=== PATIENT | male | born 1990 | race Caucasian/White ===

== ENCOUNTER 2018-10-23 23:35 | Emergency (ER) | payer OTHER ==
--- NOTE | 2018-10-23 23:56 | EDM.PDOC ---
ED HPI GENERAL MEDICAL PROBLEM - General Chief Complaint: Lower Extremity Injury/Pain Stated Complaint: LEFT LEG INJURY Time Seen by Provider: 10/23/18 23:39 Source of Information: Reports: Patient History Limitations: Reports: No Limitations - History of Present Illness INITIAL COMMENTS - FREE TEXT/NARRATIVE: Is a 27-year-old male. 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 It initially grazed down his left upper arm and then hit him in the thigh. He now has massive swelling of the thigh with bruising that has drained into his knee and down his calf and into his ankle. He has of course lots of pain with this and is not able to bend that knee due to the swelling. He states he doesn't have any numbness in his toes or tingling. He denies any other acute injuries. - Related Data Allergies Allergy/AdvReac Type Severity Reaction Status Date / Time No Known Allergies Allergy Verified 10/23/18 23:43 Home Meds: Home Meds . [No Known Home Meds] 10/23/18 [History] Review of Systems - Review of Systems Review Of Systems: See Below Constitutional: Denies: Chills, Fever Eyes: Reports: No Symptoms Ears: Reports: No Symptoms, Previous Injury Mouth/Throat: Reports: No Symptoms Respiratory: Reports: No Symptoms Cardiovascular: Reports: No Symptoms GI/Abdominal: Reports: No Symptoms Genitourinary: Reports: No Symptoms Musculoskeletal: Reports: Other (As per history of present illness) Skin: Reports: Other (As per history of present illness) Neurological: Reports: No Symptoms Psychiatric: Reports: No Symptoms ED EXAM, GENERAL - Physical Exam Exam: See Below Exam Limited By: No Limitations General Appearance: Alert, WD/WN, Mild Distress Eye Exam: Bilateral Eye: Normal Inspection Ears: Normal External Exam Nose: Normal Inspection Throat/Mouth: Normal Lips, Normal Voice, No Airway Compromise Head: Normocephalic Neck: Supple Respiratory/Chest: No Respiratory Distress, Lungs Clear, Normal Breath Sounds Cardiovascular: Regular Rate, Rhythm, No Murmur Back Exam: Normal Inspection, Full Range of Motion Extremities: Other (His left lower extremity has massive swelling and bruising that has drained into his knee and his calf and down to his ankle. His left knee has massive swelling with purple discoloration anterior and posterior, the calf is swollen and on the anterior shinHe has several blisters developing, he also has lots of swelling in the left ankle itself, the circumference in the mid thigh on the left is 71 cm on the right is 59 cm, on the left knee over the patella is 59 cm on the right over the patellar is 48 cm, the calf on the left is approximately 45 cm and on the right is approximately 41 cm, on the anterior vega there is noted to be some blistering starting but there is no evidence of any infection at this time, his toes are pink but the capillary refill is greater than 3 seconds, he does have a pedal pulse and posterior tibial pulse by Doppler in the left foot) Neurological: Alert, Oriented Psychiatric: Normal Affect, Normal Mood Skin Exam: Warm, Dry Course - Vital Signs Last Recorded V/S: Last Vital Signs Temp 98.5 F 10/23/18 23:44 Pulse 100 10/23/18 23:44 Resp 18 10/23/18 23:44 BP 135/88 10/23/18 23:44 Pulse Ox 100 10/23/18 23:44 - Orders/Labs/Meds Orders: Active Orders 24 hr Category Date Time Status Knee 3V Lt [CR] Stat Exams 10/23/18 23:48 Taken - Radiology Interpretation Free Text/Narrative:: X-ray of the left knee did not show any acute fractures just lots of soft tissue swelling Departure - Departure Time of Disposition: 00:11 Disposition: Home, Self-Care 01 Condition: Fair Clinical Impression: Capillary refill time greater than 2 seconds Traumatic hematoma of left knee Qualifiers: Encounter type: initial encounter Qualified Code(s): S80.02XA - Contusion of left knee, initial encounter Hematoma of left lower extremity Qualifiers: Encounter type: initial encounter Qualified Code(s): S80.12XA - Contusion of left lower leg, initial encounter Traumatic hematoma of left ankle Qualifiers: Encounter type: initial encounter Qualified Code(s): S90.02XA - Contusion of left ankle, initial encounter Traumatic hematoma of left thigh Qualifiers: Encounter type: initial encounter Qualified Code(s): S70.12XA - Contusion of left thigh, initial encounter - Discharge Information *PRESCRIPTION DRUG MONITORING PROGRAM REVIEWED*: Not Applicable *COPY OF PRESCRIPTION DRUG MONITORING REPORT IN PATIENT PUNEET: Not Applicable Instructions: Acute Compartment Syndrome, Quadriceps Contusion, [id number] Referrals: PCP,None [Primary Care Provider] - Forms: ED Department Discharge, ED Return to Work/School Form Additional Instructions: It is important that you do not bear weight on this left leg or foot, it is important that you use your crutches at all times, it is important to keep this left leg elevated and you may start using moist warmth or heat to help absorb the blood but do not make it too hot since your skin is now sensitive and it is easier to burn, if your toes become white, tingling, numb with marked increased pain in your calf or thigh you need to return to the ER immediately. You are under no work capacity at this time until you follow up with the designated medical provider for your company and you see an risk specialist If at any time the blisters appear to be infected with redness you must be seen immediately since your circulation is compromised an infection will travel quickly. Use triple antibiotic on the open blisters but do not use any adhesive on the skin such as a Band-Aid since the skin is very fragile and will tear when you pull the Band-Aid off or any adhesive covering off. Just use some Telfa with the triple antibiotic ointment and then wrap gently the calf area. Keep this left leg elevated as much as possible when you are seated. - My Orders Last 24 Hours: My Active Orders 10/23/18 23:48 Knee 3V Lt [CR] Stat - Assessment/Plan Last 24 Hours: My Active Orders 10/23/18 23:48 Knee 3V Lt [CR] Stat
--- NOTE | 2018-10-24 10:29 | CR ---
Left knee: AP, lateral and sunrise patellar views of the left knee were obtained. Comparison: No previous study. Medial and lateral joint spaces are preserved in height. No joint effusion is seen. No fracture or other abnormality is seen. Impression: 1. No abnormality is identified on three-view left knee exam. Diagnostic code #1
== END 2018-10-24 00:42 | disposition home or self-care (01) ==
LOC: JD.ED 23:35
DX: S80.02XA Contusion of left knee, initial encounter (principal); S80.12XA Contusion of left lower leg, initial encounter; S90.02XA Contusion of left ankle, initial encounter; S70.12XA Contusion of left thigh, initial encounter; W20.8XXA Other cause of strike by thrown, projected or falling object, initial encounter
CPT/HCPCS: 73562-26-LT; 73562-LT; 99283; 99283-25